=== PATIENT | female | born 1985 | race Caucasian/White ===

== ENCOUNTER 2017-09-22 16:47 | Emergency (ER) | payer OTHER, MEDICAID ==
[~2017-09-22] VITALS: Ht 154.9 cm; Wt 72.6 kg
[~2017-09-22 16:47] MED LIST: BENADRYL A12.5 MG/5 PO; CIPRO500 MG PO; FLAGYL500 MG PO; REGLAN 10 MG TA10 MG PO
[2017-09-22 16:54] VITALS: BP 141/86
[2017-09-22] MEDS ORDERED: MEDROLDOSEPACK PO (17:22)
[2017-09-22] MEDS ORDERED: PROAIR HFA8.5 GM INH (17:22)
== END 2017-09-22 17:26 | disposition home or self-care (01) ==
LOC: M.ERS 16:47
DX: J20.9 Acute bronchitis, unspecified (principal); Z88.1 Allergy status to other antibiotic agents; Z88.0 Allergy status to penicillin

== ENCOUNTER 2017-11-25 18:12 | Emergency (ER) | payer OTHER, MEDICAID ==
[~2017-11-25] VITALS: Ht 154.9 cm; Wt 72.6 kg
[~2017-11-25 18:12] MED LIST changes: +MEDROLDOSEPACK PO; +PROAIR HFA8.5 GM INH
[2017-11-25 18:55] LABS: INFLUENZA A ANTIGEN None Detected (None Detect); INFLUENZA B ANTIGEN None Detected (None Detect)
[2017-11-25 19:12] LABS: ABSOLUTE LYMPHOCYTES 1.4 thou/uL (0.8-5.3); ABSOLUTE MONOCYTES 1.1 thou/uL (0.0-1.2); ABSOLUTE NEUTROPHILS 11.7 thou/uL (1.6-8.1); BASOPHILS 0.2 %; EOSINOPHILS 0.1 %; HEMATOCRIT 36.2 % (37.0-47.0); HEMOGLOBIN 11.9 gm/dL (12.0-15.0); MCH 27.1 pg (26.0-34.0); MCHC 32.9 g/dL (28.0-37.0); MCV 82.5 fL (80.0-100.0); MONOCYTES 7.8 %; MPV 8.4 fl. (7.2-11.1); NUCLEATED RBCS 0 /100WBC; PLATELET COUNT* 272 thou/uL (150-400); POLYS 81.9 %; RBC 4.39 mil/uL (4.20-5.00); RDW-CV 13.4 % (10.5-14.5); WBC 14.3 thou/uL (4.0-11.0)
[2017-11-25 19:20] LABS: CALCIUM 8.5 mg/dL (8.5-10.1); CREATININE 0.7 mg/dL (0.6-1.3); POTASSIUM 3.6 mmol/L (3.5-5.1)
[2017-11-25 19:25] LABS: ALBUMIN 3.3 g/dL (3.4-5.0); TOTAL BILIRUBIN 0.3 mg/dL (<0.1-1.0); TOTAL PROTEIN 7.4 g/dL (6.4-8.2)
[2017-11-25] MEDS ORDERED: PREDNISONE 10 M10 M1 PO (19:59)
[2017-11-25 20:12] VITALS: BP 126/81
== END 2017-11-25 20:15 | disposition home or self-care (01) ==
LOC: M.ERS 18:12
PROVIDERS: Nurse Practitioner Family
DX: B27.90 Infectious mononucleosis, unspecified without complication (principal); J03.90 Acute tonsillitis, unspecified; Z88.0 Allergy status to penicillin; Z88.1 Allergy status to other antibiotic agents

== ENCOUNTER 2018-09-04 02:53 | Emergency (ER) | payer OTHER, MEDICAID ==
[~2018-09-04] VITALS: Ht 154.9 cm; Wt 68.0 kg
[~2018-09-04 02:53] MED LIST changes: +PREDNISONE 10 M10 M1 PO
[2018-09-04] MEDS ORDERED: TRAMADOL 50 MG50 MG PO (04:06)
[2018-09-04 04:22] VITALS: BP 119/63
== END 2018-09-04 04:22 | disposition home or self-care (01) ==
LOC: M.ERS 02:53
DX: S60.042A Contusion of left ring finger without damage to nail, initial encounter (principal); Z98.890 Other specified postprocedural states; Z88.0 Allergy status to penicillin; Z88.1 Allergy status to other antibiotic agents; W10.8XXA Fall (on) (from) other stairs and steps, initial encounter; Y93.89 Activity, other specified; Y92.89 Other specified places as the place of occurrence of the external cause; Y99.8 Other external cause status

== ENCOUNTER 2019-04-05 18:47 | Emergency (ER) | payer OTHER, MEDICAID ==
[~2019-04-05] VITALS: Ht 154.9 cm; Wt 74.8 kg
[~2019-04-05 18:47] MED LIST changes: +TRAMADOL 50 MG50 MG PO
[2019-04-05] MEDS ORDERED: NOHOMEMEDICATIONS (19:00)
[2019-04-05 19:08] LABS: URINE BILIRUBIN NEGATIVE (Negative); URINE BLOOD NEGATIVE (Negative); URINE CLARITY CLEAR; URINE COLOR YELLOW; URINE GLUCOSE-RANDOM NEGATIVE (Negative); URINE KETONES TRACE (Negative); URINE LEUKOCYTES-REFLEX NEGATIVE (Negative); URINE NITRITE-REFLEX NEGATIVE (Negative); URINE PROTEIN NEGATIVE (Negative); URINE SPECIFIC GRAVITY >= 1.030 (1.005-1.030); URINE UROBILINOGEN 0.2 E.U./dl (0.2-1.0)
[2019-04-05 20:16] LABS: ABSOLUTE BASOPHILS 0.1 thou/uL (0.0-0.2); ABSOLUTE EOSINOPHILS 0.1 thou/uL (0.0-0.7); ABSOLUTE LYMPHOCYTES 3.3 thou/uL (0.8-5.3); ABSOLUTE MONOCYTES 0.7 thou/uL (0.0-1.2); ABSOLUTE NEUTROPHILS 7.3 thou/uL (1.6-8.1); BASOPHILS 1.2 %; EOSINOPHILS 0.9 %; HEMATOCRIT 34.1 % (37.0-47.0); LYMPHOCYTES 28.2 %; MCH 26.2 pg (26.0-34.0); MCHC 32.3 g/dL (28.0-37.0); MCV 81.2 fL (80.0-100.0); MONOCYTES 6.3 %; NUCLEATED RBCS 0 /100WBC; PLATELET COUNT* 290 thou/uL (150-400); POLYS 63.4 %; RDW-CV 14.8 % (10.5-14.5); WBC 11.5 thou/uL (4.0-11.0)
[2019-04-05 20:27] LABS: CREATININE 0.8 mg/dL (0.6-1.3); POTASSIUM 3.5 mmol/L (3.5-5.1)
[2019-04-05 20:38] LABS: ALBUMIN 3.8 g/dL (3.4-5.0); TOTAL BILIRUBIN 0.3 mg/dL (<0.1-1.0); TOTAL PROTEIN 7.8 g/dL (6.4-8.2)
[2019-04-05] MEDS ORDERED: PREDNISONE 20 M20 MG PO (20:41)
[2019-04-05 20:55] VITALS: BP 147/82
== END 2019-04-05 20:56 | disposition home or self-care (01) ==
LOC: M.ERS 18:47
PROVIDERS: Physician Assistant
DX: R21 Rash and other nonspecific skin eruption (principal); M54.5 Low back pain; R39.15 Urgency of urination; N89.8 Other specified noninflammatory disorders of vagina; R11.0 Nausea; Z98.51 Tubal ligation status; Z88.0 Allergy status to penicillin; Z88.8 Allergy status to other drugs, medicaments and biological substances

== ENCOUNTER 2021-07-19 12:21 | Emergency (ER) | payer OTHER ==
[~2021-07-19] VITALS: Ht 154.9 cm; Wt 80.7 kg
[~2021-07-19 12:21] MED LIST changes: +NOHOMEMEDICATIONS; +PREDNISONE 20 M20 MG PO
[2021-07-19] MEDS ORDERED: MEDROLDOSEPACK PO (13:43)
[2021-07-19] MEDS ORDERED: FLONASE 0.05%50 MCG NARES (13:43)
[2021-07-19] MEDS ORDERED: ZYRTEC10 MG PO (13:43)
[2021-07-19 13:52] VITALS: BP 156/78
== END 2021-07-19 13:52 | disposition home or self-care (01) ==
LOC: M.ERS 12:21
DX: J30.9 Allergic rhinitis, unspecified (principal); R09.82 Postnasal drip; Z98.51 Tubal ligation status; Z98.890 Other specified postprocedural states; Z88.0 Allergy status to penicillin; Z88.1 Allergy status to other antibiotic agents